=== PATIENT | female | born 1975 | race Caucasian/White ===

== ENCOUNTER 2018-10-31 16:12 | Emergency (ER) | payer MEDICAID ==
[~2018-10-31] VITALS: Ht 157.5 cm; Wt 64.9 kg
[~2018-10-31 16:12] MED LIST: IBUP-1542 PO; NITR-58 PO; ONDA4TAB14 PO; PHEN-538 PO
--- NOTE | 2018-10-31 16:20 | ERD ---
ER Documentation Chief Complaint Chief Complaint Chest pain HPI The patient is a 43-year-old female, presenting to the ER because of left-sided chest pain that began around 12 PM today, has similar symptoms 10 months ago, intermittent, denies chest pain with vomiting/radiation/exertion/diaphoresis, dyspnea. She complains of epigastric abdominal discomfort, nausea vomiting once today, denies hematemesis/hematochezia, denies diarrhea, constipation, dysuria. She does not smoke, drinks socially Past medical/surgical history: None ROS All systems reviewed and are negative except as per history of present illness. Medications Home Meds Active Scripts Ondansetron (Ondansetron Odt) 4 Mg Tab.rapdis, 4 MG PO Q6H PRN for NAUSEA AND/OR VOMITING, #10 TAB Prov:DURAN ODELL MD 10/31/18 Ondansetron (Ondansetron Odt) 4 Mg Tab.rapdis, 4 MG PO Q6H PRN for NAUSEA AND/OR VOMITING, #10 TAB Prov:DURAN ODELL MD 10/31/18 Ibuprofen* (Motrin*) 600 Mg Tab, 600 MG PO Q6H PRN for PAIN, #20 TAB Prov:DURAN ODELL MD 10/31/18 Discontinued Scripts Phenazopyridine Hcl* (Pyridium*) 200 Mg Tab, 200 MG PO TID PRN for PAIN, #9 TAB 0 Refills Prov:ROMMEL CONTEH PA-C 05/21/15 Nitrofurantoin Monohyd Macrocr* (Macrobid*) 100 Mg Capsr, 100 MG PO BID, #14 CAP 0 Refills Prov:ROMMEL CONTEH PA-C 05/21/15 Allergies Allergies: Coded Allergies: No Known Allergy (Unverified , 10/31/18) PMhx/Soc Hx Alcohol Use: No Hx Substance Use: No Hx Tobacco Use: No Physical Exam Vitals Vital Signs Date Temp Pulse Resp B/P (MAP) Pulse Ox O2 O2 Flow FiO2 Time Delivery Rate 10/31/18 98.2 65 18 113/69 100 20:50 (84) 10/31/18 80 18 105/66 100 Room Air 18:25 (79) 10/31/18 98.3 79 16 103/54 100 Room Air 17:40 (70) 10/31/18 98.2 89 18 119/60 99 16:23 (79) Physical Exam Const: No acute distress. Head: Atraumatic. Eyes: Normal Conjunctiva. ENT: Normal External Ears, Nose and Mouth. Neck: Full range of motion. No meningismus. Resp: Clear to auscultation bilaterally. Cardio: Regular rate and rhythm. Abd: Soft, non distended, normal bowel sounds, non tender. Skin: No petechiae or rashes. Back: No midline or flank tenderness. Ext: No cyanosis, or edema. Neur: Awake and alert. No focal deficit Psych: Normal Mood and Affect. Result Diagram: 10/31/18 1655 10/31/18 1655 Results 24 hrs Laboratory Tests Test 10/31/18 16:48 10/31/18 16:55 10/31/18 17:26 10/31/18 17:27 D-Dimer 324.89 ng/ml D-Dimer Comment White Blood Count 8.4 10^3/ul Red Blood Count 4.40 10^6/ul Hemoglobin 10.0 g/dl Hematocrit 32.8 % Mean Corpuscular 74.5 fl Volume Mean Corpuscular 22.7 pg Hemoglobin Mean Corpuscular 30.5 g/dl Hemoglobin Concent Red Cell 15.8 % Distribution Width Platelet Count 181 10^3/UL Mean Platelet Volume 11.6 fl Immature 0.200 % Granulocytes % Neutrophils % 58.8 % Lymphocytes % 32.6 % Monocytes % 7.3 % Eosinophils % 0.7 % Basophils % 0.4 % Nucleated Red Blood 0.0 /100WBC Cells % Immature 0.020 10^3/ul Granulocytes # Neutrophils # 4.9 10^3/ul Lymphocytes # 2.7 10^3/ul Monocytes # 0.6 10^3/ul Eosinophils # 0.1 10^3/ul Basophils # 0.0 10^3/ul Nucleated Red Blood 0.0 10^3/ul Cells # Sodium Level 140 mmol/L Potassium Level 3.5 mmol/L Chloride Level 102 mmol/L Carbon Dioxide Level 29 mmol/L Anion Gap 9 Blood Urea Nitrogen 13 mg/dl Creatinine 0.74 mg/dl Est Glomerular > 60 mL/min Filtrat Rate mL/min Glucose Level 104 mg/dl Calcium Level 9.4 mg/dl Total Bilirubin 0.3 mg/dl Direct Bilirubin 0.00 mg/dl Indirect Bilirubin 0.3 mg/dl Aspartate Amino 23 IU/L Transf (AST/SGOT) Alanine 21 IU/L Aminotransferase (AL T/SGPT) Alkaline Phosphatase 57 IU/L Troponin I < 0.012 ng/ml Total Protein 7.9 g/dl Albumin 4.4 g/dl Globulin 3.50 g/dl Albumin/Globulin 1.25 Ratio Lipase 93 U/L Bedside Urine pH 7.0 (LAB) Bedside Urine Negative Protein (LAB) Bedside Urine Negative Glucose (UA) Bedside Urine Negative Ketones (LAB) Bedside Urine Blood 2+ Bedside Urine Negative Nitrite (LAB) Bedside Urine Negative Leukocyte Esterase (L POC Beta HCG, NEGATIVE Qualitative Test 10/31/18 19:35 Troponin I < 0.012 ng/ml Current Medications Medications Dose Sig/Rebecca Start Time Status Last (Trade) Ordered Route PRN Stop Time Admin Dose Reason Admin Ketorolac 30 mg ONCE STAT 10/31/18 DC 10/31/18 Tromethamine IV 17:43 10/31/18 17:48 (Toradol) 17:44 Famotidine 20 mg ONCE ONCE 10/31/18 DC 10/31/18 (Pepcid Iv) IV 18:30 10/31/18 18:16 18:31 Sodium 1,000 ml @ Q1H ONCE 10/31/18 DC 10/31/18 Chloride 1,000 mls/hr IV 19:30 10/31/18 19:43 20:29 Morphine 2 mg ONCE STAT 10/31/18 DC 10/31/18 Sulfate IV 19:23 10/31/18 19:43 (morphine) 19:25 Ondansetron 4 mg ONCE STAT 10/31/18 DC 10/31/18 HCl (Zofran IV 19:23 10/31/18 19:43 Inj) 19:25 Ondansetron 4 mg ONCE STAT 10/31/18 DC 10/31/18 HCl (Zofran IV 20:08 10/31/18 20:13 Inj) 20:11 Procedures/[place] [id number] Radiology Main Line: [phone] DIAGNOSTIC IMAGING REPORT Patient: LOUISE DAILEY : 1975 Age: 43 Sex: F MR #: [id number] DOS: 10/31/18 1640 Ordering MD: DURAN ODELL MD Location: E/R Room/Bed: PROCEDURE: XR Chest. CLINICAL INDICATION: Shortness of breath. TECHNIQUE: Single frontal view. COMPARISON: None. FINDINGS: There are bilateral lung base patchy consolidations. There are increased interstitial markings. The heart size is normal. There is a tortuous calcified thoracic aorta. There is no pleural effusion. There is no pneumothorax. IMPRESSION: There are bilateral lung base patchy consolidations. There are increased interstitial markings. RPTAT: QQ Physician Amada Date Time Electronically viewed and signed by Archie De Leon Physician on 10/31/2018 17:08 RD/ CC: DURAN ODELL MD [phone] [place] [id number] Radiology Main Line: [phone] DIAGNOSTIC IMAGING REPORT Patient: LOUISE DAILEY : 1975 Age: 43 Sex: F MR #: [id number] DOS: 10/31/18 1640 Ordering MD: DURAN ODELL MD Location: E/R Room/Bed: PROCEDURE: Ultrasound gallbladder CLINICAL INDICATION: abdominal pain TECHNIQUE: Munoz scale, color flow and Doppler ultrasound images of the abdomen. COMPARISON: None FINDINGS: Pancreas: The head and body of the pancreas are unremarkable. Tail is obscured by shadowing bowel gas. Liver: Liver demonstrates normal size and echotexture. No parenchymal lesions are identified. Normal directional flow toward the liver is demonstrated in the main portal vein. Gallbladder: Partially contracted, otherwise unremarkable. No gallstones identified. No significant wall thickening or evidence of pericholecystic fluid. Biliary system: No significant dilatation of the intrahepatic or extrahepatic biliary system. Common bile duct measures 1.9 mm diameter. Right Kidney: Measures 11.2 cm in length. A punctate 1 mm echogenic focus at the inferior pole of the kidney may represent a tiny nonobstructing stone. No hydronephrosis or abnormal perinephric fluid. Additional findings: None IMPRESSION: 1. Partially contracted gallbladder appears normal. 2. Punctate 1 mm echogenic focus at the lower pole of the right kidney, possibly a nonobstructing stone. 3. No additional acute findings. RPTAT: [facility] Physician Davian Date Time Electronically viewed and signed by Physician Davian on 10/31/2018 17:46 xB/ CC: DURAN ODELL MD [id number] EK:28 PM read by emergency physician Rate/Rhythm: Normal Sinus Rhythm 89 beats/min QRS, ST, T-waves: No ST elevation, no T inversion Impression: Normal EKG EK:08 PM read by emergency physician Rate/Rhythm: Normal Sinus Rhythm 89 beats/min QRS, ST, T-waves: No ST elevation, no T inversion Impression: Normal EKG MEDICAL MAKING DECISION: The patient is a 43-year-old female without any risk factors, presenting with acute chest pain, treated with 1 L normal saline for clinical dehydration, Pepcid 20 mg IV, Toradol 30 mg IV, morphine 2 mg IV for pain and Zofran IV for nauseas with good response, is above outpatient follow-up The differential diagnoses considered include but are not limited to acute coronary syndrome, acute myocardial infarction, pericarditis, pulmonary embolism, aortic dissection, pneumonia, pleural effusion, pneumothorax, GERD, chest wall pain. The patient presents with chest pain and I considered pulmonary embolism, aortic dissection, pneumothorax among other diagnoses. Evaluation for acute coronary syndrome was performed. The HEART score (www.mdcalc.com) was utilized for risk stratification and found to be <= 3. Repeat EKG and troponin @ 3 hours were unchanged. Based on this evaluation the patients risk of major adverse cardiac events is <1%. Shared decision making occurred with patient and the decision has been made to discharge the patient for outpatient evaluation and functional study within 72 hours. Departure Diagnosis: Primary Impression: Chest pain Additional Impressions: Anemia Hematuria Condition: Good Comments I discussed the findings with the patient. I advised the patient to follow-up with the primary physician/wire stockkeeper in about 1-2 days, sooner if needed and return if any concern. Disclaimer: Inadvertent spelling and grammatical errors are likely due to EHR/dictation software use and do not reflect on the overall quality of patient care. Also, please note that the electronic time recorded on this note does not necessarily reflect the actual time of the patient encounter. DURAN ODELL MD Oct 31, 2018 16:20
[2018-10-31 16:23] VITALS: Ht 157.5 cm; Wt 64.9 kg
[2018-10-31] MEDS ORDERED: KETOROLAC 30 MG INJ IV STA (17:43)
[2018-10-31] MEDS ORDERED: FAMOTIDINE 20 MG INJ IV ONE (18:30)
[2018-10-31] MEDS ORDERED: morphine 2 MG INJ IV STA (19:23)
[2018-10-31] MEDS ORDERED: ONDANSETRON 4 MG INJ IV STA ×2 (19:23→20:08)
[2018-10-31] MEDS ORDERED: SOD CHLORIDE 0.9% 1,000 ML IV ONE (19:30)
[2018-10-31 20:50] VITALS: BP 113/69; PULSE 65; RESP 18
== END 2018-10-31 20:50 | disposition home or self-care (01) ==
LOC: E/R 16:12
DX: R07.9 Chest pain, unspecified (principal); D64.9 Anemia, unspecified; R31.9 Hematuria, unspecified; R40.2142 Coma scale, eyes open, spontaneous, at arrival to emergency department; R40.2362 Coma scale, best motor response, obeys commands, at arrival to emergency department
CPT/HCPCS: 36415; 71045; 76705; 80053; 81003; 81025; 83690; 84484; 85025; 85378; 93005; 96374; 96375; J1885; J2270; J2405; J7030; Z7502; Z7610